=== PATIENT | female | born 1975 | race Caucasian/White ===

== ENCOUNTER 2017-05-06 05:51 | Inpatient (IN) | payer BC ==
[2017-05-05 09:34] VITALS: BMI 29.3
[2017-05-06] VITALS (23 sets, daily range): BP systolic 93–145; BP diastolic 50–85; PULSE 62–101; RESP 11–25; Ht 157.5 cm; Wt 110.8 kg
[~2017-05-06] VITALS: Ht 157.5 cm; Wt 110.8 kg
[~2017-05-06 05:51] MED LIST: ALPR0.25 PO
[2017-05-06] MEDS ORDERED: LACTATED RINGER'S 1,000 ML IV* SCH (06:30)
[2017-05-06] MEDS ORDERED: CEFAZOLIN 2 GM/50 ML (PMX) 50 ML IVPB ONE (06:30)
[2017-05-06] MEDS ORDERED: ROCURONIUM 50 MG INJ ONE ×2 (07:00→08:05)
[2017-05-06] MEDS ORDERED: CEFAZOLIN 1 GM INJ ONE ×2 (08:05→09:32)
[2017-05-06] MEDS ORDERED: PROPOFOL 20 ML ONE (08:05)
[2017-05-06] MEDS ORDERED: FENTAnyl 50 MCG/ML VIAL ONE ×2 (08:05)
[2017-05-06] MEDS ORDERED: MIDAZOLAM 1 MG/ML 2 ML INJ ONE ×2 (08:05)
--- NOTE | 2017-05-06 08:10 | HPN ---
Date/Time of Note Date/Time of Note DATE: 05/06/17 TIME: 08:10 Interval H&P Admission Note Pt. seen H&P reviewed: No system changes MILLIE STAPLETON MD May 06, 2017 08:10
--- NOTE | 2017-05-06 08:33 | HP ---
Date/Time of Note Date/Time of Note DATE: 05/06/17 TIME: 08:11 Assessment/Plan VTE Prophylaxis VTE Prophylaxis Intervention: ambulation Lines/Catheters IV Catheter Type (from Nrsg): Peripheral IV Assessment/Plan Assessment/Plan menorrhagia dyspareunia anxiety plan LEE poss BSO/BS HPI/ROS Admit Date/Time Admit Date/Time May 06, 2017 at 05:51 Hx of Present Illness 42y.o [id number] who is admitted fot LEE poss BSO poss bilateral salphingectomy who had tubal steriliztion. since oct last to february had vaginal bleeding on and off for 4mo ,passing clots also had abnormal pap f/b cone biopsy ? 1996 c/o painful sex each time . due to abnormal uterine bleeding,recommanded for at least endometrial bx, but patient desire to have removal of uterus. without going through biopsy. also endometrial ablation offered ,patient declined patient was informed distal part of tubes will be removed if its possible. patient agree to have surgical procedure which she consented after informed possible complications from minor to serious ,from surgery and aneshesia in detail ROS Constitutional: improved, no complaints Genitourinary: no complaints, other (pronged vaginal bleeding dyspareunia) PMH/Family/Social Past Surgical History Past Surgical Hx: cholecystectomy, other (,BTL open heart surgery with pericardial window) Family History Significant Family History: no pertinent family hx, other (multiple family member diff cancers) Social History Smoking Status: Former smoker Drug Use: none Exam/Review of Systems Vital Signs Vitals Vital Signs Date Time Temp Pulse Resp B/P Pulse Ox O2 Delivery O2 Flow Rate FiO2 05/06/17 07:05 98.0 93 18 145/85 98 Room Air Exam Constitutional: alert, oriented, well developed Psych: nl mood/affect, no complaints Head: atraumatic, normocephalic Eyes: EOMI, PERRL, nl conjunctiva, nl lids, nl sclera ENMT: nl external ears & nose, nl lips & teeth, nl nasal mucosa & septum Neck: non-tender, supple Respiratory: clear to auscultation, normal air movement Cardiovascular: nl pulses, regular rate and rhythm Gastrointestinal: nl liver, spleen, non-tender, soft Genitourinary - Female: uterus (enlarged) Musculoskeletal: nl extremities to inspection Extremities: normal pulses Neurological: CNC SPECIALIST II-XII intact, nl mental status, nl speech, nl strength Skin: nl turgor, No rash or lesions Lymph: nl lymph nodes Medications Medications Current Medications Lactated Ringer's (Lr) 1,000 ml @ 125 mls/hr Q8H IV* ; Start 05/06/17 at 06:30 ; Stop 05/06/17 at 14:29 MILLIE STAPLETON MD May 06, 2017 08:26
[2017-05-06] MEDS ORDERED: ONDANSETRON 4 MG INJ ONE (09:33)
[2017-05-06] MEDS ORDERED: KETOROLAC 30 MG INJ ONE (09:33)
[2017-05-06] MEDS ORDERED: ACETAMINOPHEN 1000MG/100ML IV 100 ML ONE (09:33)
[2017-05-06] MEDS ORDERED: METOCLOPRAMIDE 10 MG INJ ONE (09:33)
[2017-05-06] MEDS ORDERED: DEXAMETHASONE 4 MG/ML 1 ML INJ ONE (09:33)
[2017-05-06] MEDS ORDERED: ROPIVACAINE 0.5 % 30 ML VIAL ONE (09:37)
[2017-05-06] MEDS ORDERED: FENTANYL XX SCH (10:30)
[2017-05-06] MEDS ORDERED: KETOROLAC 30 MG INJ IV PRN (10:30)
[2017-05-06] MEDS ORDERED: TRIMETHOBENZAMIDE 100 MG/ML VIAL IM PRN (10:30)
[2017-05-06] MEDS ORDERED: FENTAnyl 50 MCG/ML VIAL IV PRN ×3 (10:30)
[2017-05-06] MEDS ORDERED: MEPERIDINE 25 MG INJ IV PRN (10:30)
[2017-05-06] MEDS ORDERED: ALBUMIN HUMAN 5% 250 ML IV PRN (10:30)
[2017-05-06] MEDS ORDERED: NALOXONE (0.4 MG/ML) INJ IV PRN (10:30)
[2017-05-06] MEDS ORDERED: LABETALOL HCL 20MG INJ IV PRN (10:30)
[2017-05-06] MEDS ORDERED: [UNRECOGNIZED DRUG - OTHER] XX SCH (10:30)
[2017-05-06] MEDS ORDERED: ONDANSETRON 4 MG INJ IV PRN ×2 (10:30→15:00)
[2017-05-06] MEDS ORDERED: DIPHENHYDRAMINE 50 MG INJ IV PRN ×2 (10:30)
[2017-05-06] MEDS ORDERED: ACETAMINOPHEN 500 MG TAB PO PRN (10:30)
[2017-05-06] MEDS ORDERED: EPHEDrine SULFATE 50 MG/5 ML SYG IV PRN (10:30)
[2017-05-06] MEDS ORDERED: METOCLOPRAMIDE 10 MG INJ IV PRN (10:30)
[2017-05-06] MEDS ORDERED: GLYCOPYRROLATE 1 MG INJ ONE (10:54)
[2017-05-06] MEDS ORDERED: NEOSTIGMINE 3 MG/3 ML SYRINGE ONE (10:54)
[2017-05-06] MEDS: LACTATED RINGER'S 1,000 ML IV SCH ×2 (13:36→22:30)
[2017-05-06] MEDS: CEFAZOLIN 2 GM/50 ML (PMX) 50 ML IVPB SCH ×2 (13:43→22:29)
[2017-05-06] MEDS ORDERED: traMADol 50 MG TAB PO PRN (14:00)
[2017-05-06] MEDS ORDERED: IBUPROFEN 800 MG TAB PO PRN (14:00)
[2017-05-06] MEDS ORDERED: CEFAZOLIN 2 GM/50 ML (PMX) 50 ML IVPB SCH (14:00)
[2017-05-06] MEDS: ACETAMINOPHEN 325 MG TAB PO PRN ×2 (14:30→21:04)
[2017-05-06] MEDS ORDERED: METOCLOPRAMIDE 10 MG INJ IVPB PRN (15:00)
[2017-05-06] MEDS: ALPRAZOLAM 0.25 MG TAB PO PRN ×2 (15:06→21:04)
--- NOTE | 2017-05-06 16:54 | OPR ---
DATE OF OPERATION: 05/06/2017 PREOPERATIVE DIAGNOSIS: Menorrhagia, dyspareunia, enlarged uterus. POSTOPERATIVE DIAGNOSIS: See pathological report, morbid obesity, deep cavity with bulging fat into the cavity, and poor tissue. OPERATION PERFORMED: Total abdominal hysterectomy, bilateral salpingectomy. ANESTHESIA: General and tap. ANESTHESIOLOGIST: Dr. Castillo SURGEON: Christa Pryor MD SPEECH LANGUAGE PATHOLOGY ASSISTANT: Dr. Coker ESTIMATED BLOOD LOSS: 200 mL. PROCEDURE: Under the proper induction of general anesthesia, the patient was placed in the frog pos ition. Hernadez catheter was introduced into the bladder under sterile condition, [facility] Abdominal wall was prepped and draped in usual aseptic manner. The patient is extremely obese and abdominal wall is extremely thick. A Pfannenstiel incision was made transversely. Incision was carried down through the subcutaneous tissue which was deep, and the fascia was transversely incise d. This is a very thin and poor tissue turgor. The incision was extended bilaterally and a fascial flap was created by blunt and sharp dissection of tendinous attachment upward and downward and 2 re ctus muscles splayed and peritoneal cavity was entered. The patient was placed in the Trendelenburg position. Bowel was packed away after the OC retractor was introduced into the abdominal cavity wi th the struggle due to the older, heavy extra fat and peritoneal fat. The uterus was identified, which was approximately 10 weeks of gestational size, relatively soft and both cornua held with 2 Pean forceps and the left round ligament clamped and cut, ligated with #1 c hromic catgut on each side and the bladder flap was created, starting from the left anterior broad l igament which was incised inferomedially toward the cervical fold and same thing on the right side a nd created a bladder flap. The utero-ovarian ligament and fallopian tubes, the proximal portion of fallopian tube was clamped and cut and transfixed with #1 chromic catgut on each side. Then skeleto nization of the uterine artery and this uterine artery, both were clamped and cut, ligated with #1 c hromic catgut with extreme difficulty due to the depth of the cavity. Then somehow the patient had a previous cervical procedure which was holding the uterus down and not able to pull up. After the uterine vessel was clamped and the uterine artery ligated, the cardinal ligament was clamped and wit h a very difficult and the tissue is poor and each time to clamp was made. With extreme diffi culty, the cardinal ligament and uterosacral ligament were clamped and cut, ligated with #1 chromic catgut. With extreme difficulty anteriorly the dissected cervical fascia and felt the tip of the ce rvix which was far, but at this point I decided to enter the anterior vaginal wall in order to remov ed, the uterus. Right after the uterine vessel was clamped and cut, removal of the fundus. The fir st bite of the cardinal ligament was clamped to cut, the uterus was removed to provide better visual ization. The cervix was held with double prong tenaculum. The cardinal ligament on each side, clamped and cut, ligated with #1 chromic catgut cut gut and uter osacral ligament on each side, clamped and cut, ligated with #1 chromic catgut. Even the length of the cervix was long and the tissue is scarred, most likely from the previous surgical procedure whic h could be cone biopsy or hemorrhage controlled. Anteriorly vaginal mucosa was entered b y using the Hanh horizontally and successfully entered. With this hole, was used to remove the uterus which was very difficult because the poor visualization and angle and all the fatty tiss ue surrounding. We were finally able to remove the cervix from the operative field. Then, the mult iple Kochers were applied on the vaginal vault with extreme difficulty because of visualizatio n of the operative field due to the depth of the cavity. Angle ligature was placed using Vicryl, wh ich was placed on both angles and the rest of the vaginal vault was closed with 0 Vicryl in multiple [id number] manner. Because of the poor visualization reinforced suture was placed transversel y. Fortunately, no bleeder was noted. Then, at this point, both of fimbria was going to be removed on the left side, clamped with a Pean a nd the fimbria removed and then this pedicle was ligated with #1 chromic catgut. On the right side, after the fimbria was removed and during the ligature, there was a bleeder on the mesosalpinx, whic h was controlled with 2-0 chromic catgut. No bleeder was noted. The irrigation done and the Surgic el was placed on the right side corner of the vault. The lap count was correct. All the lap was r emoved and then the lap count was correct, along with the OC retractor was removed. Then irrigation was done, which did not discover any kind of evidence of a bleeder. A piece of Surgicel was insert ed on the right corner of the bulge. Peritoneum was closed using 0 chromic catgut and muscle closed with 0 chromic catgut in continuous manner. Muscle bleeds and , and tissue coverage was so bad and then oozing everywhere. A piece of Surgicel was placed under the fascia. Fascia closed with #1 Vicryl in continuous manner in 2 segments and subcutaneous tissue irrigated with water and t his layer was approximated with a 2-0 plain in 2 layers. Skin closed with 3-0 Monocryl in subcuticu lar manner. A pressure dressing applied. Estimated blood loss approximately 200 mL. The patient w ithstood the procedure well and was sent to recovery room in stable condition. Dictated By: CHRISTA QUACH/MINDY Conf#: [id number] DID#: [id number]
[2017-05-07] VITALS: BP 130/59; RESP 18
[2017-05-07 04:10] VITALS: BP 133/64; PULSE 76; RESP 17
[2017-05-07] MEDS: ACETAMINOPHEN 325 MG TAB PO PRN ×2 (04:17→15:24)
[2017-05-07] MEDS ORDERED: HYDROmorphONE 1 MG/ML SYG IV PRN (04:51)
[2017-05-07] MEDS: KETOROLAC 30 MG INJ IV PRN ×2 (05:03→19:15)
[2017-05-07 05:45] LABS: ADD SCAN DIFF NO
[2017-05-07 05:51] LABS: BASOPHILS % 0.2 % (0.0-2.0); EOSINOPHILS # 0.1 10^3/ul (0.0-0.5); EOSINOPHILS % 0.5 % (0.0-7.0); HEMATOCRIT 33.1 % (37.0-47.0); HEMOGLOBIN 10.9 g/dl (12.0-16.0); LYMPHOCYTES # 2.3 10^3/ul (0.8-2.9); MEAN CORPUSCULAR HEMOGLOBIN 29.7 pg (29.0-33.0); MEAN CORPUSCULAR HGB CONC 32.9 g/dl (32.0-37.0); MEAN CORPUSCULAR VOLUME 90.2 fl (82.0-101.0); MEAN PLATELET VOLUME 10.3 fl (7.4-10.4); MONOCYTES % 7.5 % (0.0-11.0); NEUTROPHIL # 9.9 10^3/ul (1.6-7.5); NEUTROPHILS % 74.3 % (39.0-77.0); PLATELET COUNT 253 10^3/UL (140-415); RED BLOOD COUNT 3.67 10^6/ul (4.20-5.40); RED CELL DISTRIBUTION WIDTH 12.4 % (11.5-14.5); WHITE BLOOD COUNT 13.3 10^3/ul (4.8-10.8)
[2017-05-07 06:14] LABS: ALBUMIN/GLOBULIN RATIO 1.6; BILIRUBIN,INDIRECT 1.2 mg/dl (0-1.1); BILIRUBIN,TOTAL 1.2 mg/dl (0.2-1.3); CALCIUM 9.1 mg/dl (8.4-10.2); CREATININE 0.57 mg/dl (0.44-1.00); POTASSIUM 3.5 mmol/L (3.5-5.1); TOTAL PROTEIN 6.5 g/dl (6.1-8.1)
[2017-05-07] MEDS: CEFAZOLIN 2 GM/50 ML (PMX) 50 ML IVPB SCH ×3 (06:31→21:35)
[2017-05-07 07:00] VITALS: BP 108/55; RESP 18
--- NOTE | 2017-05-07 08:15 | OPPN ---
Date/Time of Note Date/Time of Note DATE: 05/07/17 TIME: 08:15 Post-Anesthesia Notes Post-Anesthesia Note Last documented vital signs Vital Signs Date Time Temp Pulse Resp B/P Pulse Ox O2 Delivery O2 Flow Rate FiO2 05/07/17 04:10 99.0 76 17 133/64 97 Room Air Activity: WNL Respiratory function: WNL Cardiovascular function: WNL Mental status: Baseline Pain reasonably controlled: Yes Hydration appropriate: Yes Nausea/Vomiting absent: Yes VALENTE MOORE MD May 07, 2017 08:15
[2017-05-07] MEDS ORDERED: OXYCODONE/ACETAMINOPHEN (10/325) TAB PO PRN ×2 (08:30)
[2017-05-07] MEDS: LACTATED RINGER'S 1,000 ML IV SCH ×2 (09:39→19:36)
[2017-05-07] MEDS: ALPRAZOLAM 0.25 MG TAB PO PRN ×3 (09:43→23:08)
--- NOTE | 2017-05-07 14:01 | PN ---
Date/Time of Note Date/Time of Note DATE: 05/07/17 TIME: 13:57 Assessment/Plan Lines/Catheters IV Catheter Type (from Nrsg): Peripheral IV Lea in Place (from Nrsg): Yes Subjective 24 Hr Interval Summary S passing flatus pain is ok O vss afebrole had low grade 99's abdomen soft wound dry no sig vaginal bleeding H&H 10.8 34 calf no tenderness A stable LEE and BS P D/C lea with urine culture abdominal binder Exam/Review of Systems Vital Signs Vitals Vital Signs Date Time Temp Pulse Resp B/P Pulse Ox O2 Delivery O2 Flow Rate FiO2 05/07/17 07:00 98.1 80 18 108/55 96 05/07/17 04:10 Room Air Intake and Output 05/06/17 05/06/17 05/07/17 14:59 22:59 06:59 Intake Total 2500 ml 1565 ml 1600 ml Output Total 400 ml 1500 ml 2300 ml Balance 2100 ml 65 ml -700 ml Results Result Diagram: 05/07/17 0505 05/07/17 0505 MILLIE STAPLETON MD May 07, 2017 14:01
[2017-05-07 14:11] LABS: ADD UMIC YES; UR ASCORBIC ACID NEGATIVE (NEGATIVE); UR BILIRUBIN (Dip) NEGATIVE (NEGATIVE); UR BLOOD (Dip) 1+ mg/dL (NEGATIVE); UR CLARITY CLEAR (CLEAR); UR COLOR COLORLESS (YELLOW); UR GLUCOSE (Dip) NEGATIVE (NEGATIVE); UR KETONES (Dip) NEGATIVE (NEGATIVE); UR LEUKOCYTE ESTERASE (Dip) NEGATIVE Leu/ul (NEGATIVE); UR NITRITE (Dip) NEGATIVE (NEGATIVE); UR RBC 1 /HPF (0-5); UR SPECIFIC GRAVITY (Dip) 1.002 (1.003-1.030); UR TOTAL PROTEIN (Dip) NEGATIVE (NEGATIVE); UR UROBILINOGEN (Dip) NEGATIVE (NEGATIVE)
[2017-05-07 19:10] VITALS: BP 131/67; RESP 18
[2017-05-08] MEDS: KETOROLAC 30 MG INJ IV PRN (01:48)
[2017-05-08] MEDS: LACTATED RINGER'S 1,000 ML IV SCH ×2 (05:36→15:36)
[2017-05-08] MEDS: CEFAZOLIN 2 GM/50 ML (PMX) 50 ML IVPB SCH ×2 (06:03→14:00)
[2017-05-08 08:43] VITALS: BP 143/80; RESP 18
[2017-05-08] MEDS: ALPRAZOLAM 0.25 MG TAB PO PRN ×2 (09:03→19:56)
--- NOTE | 2017-05-08 09:37 | PN ---
Date/Time of Note Date/Time of Note DATE: 05/08/17 TIME: 09:35 Assessment/Plan Lines/Catheters IV Catheter Type (from Nrs): Peripheral IV Hernadez in Place (from Nrsg): Yes Subjective 24 Hr Interval Summary S had bowel movement urination well O vss afebrile abdomen soft wound dry no vaginal bleeding calf no tenderness A stisfactory P poss d/s this PM Exam/Review of Systems Vital Signs Vitals Vital Signs Date Time Temp Pulse Resp B/P Pulse Ox O2 Delivery O2 Flow Rate FiO2 05/08/17 08:43 98.0 90 18 143/80 94 05/07/17 04:10 Room Air Intake and Output 05/07/17 05/07/17 05/08/17 15:00 23:00 07:00 Intake Total 850 ml 2700 ml 800 ml Output Total 2800 ml Balance 850 ml -100 ml 800 ml Results Result Diagram: 05/07/17 0505 05/07/17 0505 MILLIE STAPLETON MD May 08, 2017 09:37
--- NOTE | 2017-05-08 09:39 | PD.PPDC ---
CONVENTIONS ASSISTANT Discharge Instruction Diagnosis Final Diagnosis: abnormal uterine bleeding Condition Patient Condition: Stable Diet Diet: Resume Regular Diet Activity/Restrictions Activity: May Shower Restrictions: No Exercising No Lifting No Driving Minimize Stair-climbing No Sexual Activity Nothing in the Vagina No [place] No Tampons, douche Wound/Drain Care Instructions Wound/Drain Care Instructions: Wash with soap and water Keep clean and dry Follow-up Follow-up with Physician: 2, Week/Weeks Return to clinic for AUDIO VISUAL MANAGER Instructions: Fever greater than 101 Chills Worsening abdominal pain Excessive Vaginal Bleeding More than 2 pads per hour Unable to tolerate diet Surgical Instructions: Incisional Drainage Incisional Redness MILLIE STAPLETON MD May 08, 2017 09:39
--- NOTE | 2017-05-08 10:03 | DS ---
Date/Time of Note Date/Time of Note DATE: 05/08/17 TIME: 10:00 Discharge Summary Admission/Discharge Info Admit Date/Time May 06, 2017 at 05:51 Discharge Date/Time May 08 at 1010 Discharge Diagnosis abnormal uterine bleeding dyspareunia Patient Condition: Stable Procedures LEE bilateral salphingectomy Hx of Present Illness 42y.o [id number] who is admitted fot LEE poss BSO poss bilateral salphingectomy who had tubal steriliztion. since oct last to february had vaginal bleeding on and off for 4mo ,passing clots also had abnormal pap f/b cone biopsy ? 1996 c/o painful sex each time . due to abnormal uterine bleeding,recommanded for at least endometrial bx, but patient desire to have removal of uterus. without going through biopsy. also endometrial ablation offered ,patient declined patient was informed distal part of tubes will be removed if its possible. patient agree to have surgical procedure which she consented after informed possible complications from minor to serious ,from surgery and aneshesia in detail Hospital Course had unevenful course had b.m urination well tolerating diet well Home Meds Reported Medications Alprazolam* (Xanax*) 0.25 Mg Tablet, 0.25 MG PO Q8H Y for ANXIETY, TAB 05/05/17 Follow-up Plan 2weeks at office with routine po instructions Primary Care Provider Michael Mckeon Time spent on discharge: < 30 minutes Pending Labs Laboratory Tests Test 05/07/17 13:40 Urine Color COLORLESS (YELLOW) Urine Clarity CLEAR (CLEAR) Urine pH 8.0 (5.0-9.0) Urine Specific [place] 1.002 (1.003-1.030) Urine Ketones NEGATIVEmg/dL (NEGATIVE) Urine Nitrite NEGATIVEmg/dL (NEGATIVE) Urine Bilirubin NEGATIVEmg/dL (NEGATIVE) Urine Urobilinogen NEGATIVEmg/dL (NEGATIVE) Urine Leukocyte Esterase NEGATIVELeu/ul (NEGATIVE) Urine Microscopic RBC 1/HPF (0-5) Urine Microscopic WBC 1/HPF (0-5) Urine Hemoglobin 1+mg/dL (NEGATIVE) Urine Glucose NEGATIVEmg/dL (NEGATIVE) Urine Total Protein NEGATIVEmg/dl (NEGATIVE) MILLIE STAPLETON MD May 08, 2017 10:03
[2017-05-08] MEDS: ACETAMINOPHEN 325 MG TAB PO PRN ×2 (12:23→19:56)
[2017-05-08 19:45] VITALS: BP 141/67; RESP 18
== END 2017-05-08 20:40 | disposition home or self-care (01) | DRG 742 ==
LOC: REC 05:51 → MS1 12:47
PROVIDERS: ADMIT Obstetrics & Gynecology; ATTEND Obstetrics & Gynecology
PROC: 0UTC0ZZ Resection of Cervix, Open Approach (ICD-10-PCS; 2017-05-06)
PROC: 0UT70ZZ Resection of Bilateral Fallopian Tubes, Open Approach (ICD-10-PCS; 2017-05-06)
PROC: 0UT90ZZ Resection of Uterus, Open Approach (ICD-10-PCS; principal; 2017-05-06 08:00)
DX: N92.0 Excessive and frequent menstruation with regular cycle (principal); Z68.41 Body mass index [BMI] 40.0-44.9, adult; N94.10 Unspecified dyspareunia; N85.2 Hypertrophy of uterus; F41.9 Anxiety disorder, unspecified; E66.01 Morbid (severe) obesity due to excess calories
CPT/HCPCS: 80053; 81001; 85025; 86850; 86900; 86901; 86920; 87086; 88305; J0131; J0690; J1100; J1885; J2175; J2250; J2405; J2710; J2765; J2795; J3010; J7120

== ENCOUNTER 2018-04-25 19:35 | Emergency (ER) | END 2018-04-25 23:37 | disposition home or self-care (01) ==